=== PATIENT | male | born 1980 | race Caucasian/White ===

== ENCOUNTER 2022-07-10 06:32 | Inpatient (IN) ==
--- NOTE | 2022-07-10 06:47 | Emergency Department Note ---
Impression & Plan Depression with suicidal ideation, Anxiety ED Provider Note NAME: RAFITA CORREIA AGE: 42 SEX: M : 1980 ARRIVES VIA: Walk-In INFORMANT: Patient, ED PROVIDER(S): Medhat Smith MD CHIEF COMPLAINT: Depression MEDICAL DECISION MAKING: Patient presents with depressed mood and seeking inpatient treatment. Blood work was obtained along with a COVID swab. The patient was medically cleared seen and evaluated by the psych family independence case manager and inpatient referrals were made. Patient did receive sublingual Ativan for anxiety. Patient was evaluated by 3 S. and the patient was made inpatient. Prior /Outside records reviewed: None Differential diagnosis: Mood disorder, infection, hypoglycemia, electrolyte abnormalities, cardiac sources, intracerebral event, toxicologic, trauma, neurologic, as well as other pathologies. HPI: Patient presents for mental wellness concern and states he has been increasingly depressed. Patient states that when he closes his eyes he has fleeting visions of things like worms coming from his fingers and he does understand what this is due to. Patient states he has been increasingly depressed and is thought about self-harm but does not have a specific plan. The patient was in the [employer] serving in the [employer] and states that he does suffer from PTSD. The patient had been taking medication for depression but because of the stigma had stopped taking them in addition to the fact that he lost his job and no longer had insurance. Patient does feel very sad. The patient did have a prior suicidal bowel where the patient did obtain some box cutters and had contemplated cutting himself but did not follow through. This was 1-1/2 years ago. Patient denies any alcohol or tobacco use. The patient states that he suffers from autism and has a history of being an "[employer] br[employer] "and that these things when he was younger child caused him great difficulty. He denies any significant specific HI but states he is always concerned that he may harm someone else. Patient does not own any guns or weapons. The patient does not feel safe at home and does live by himself. Patient is currently unemployed. Patient has not sought any benefits of the [place] PAST MEDICAL HISTORY: See Below PAST SURGICAL HISTORY: See Below SOCIAL HISTORY: See Below HOME MEDICATIONS: See Below ALLERGIES: See Below VITALS: See Below PHYSICAL EXAMINATION: GENERAL: Depressed mood, tearful. EYE EXAM: Normal conjunctiva. PERRL, no anisocoria and EOM's grossly intact w/o pain. NECK: Supple, no nuchal rigidity, no adenopathy, non-tender. No signs of meningismus. FROM of the neck with good chin to chest and neck extension. No stridor. LUNGS: Clear to auscultation. Normal chest wall mechanics. HEART: NSR, no MRG. ABDOMEN: Abdomen soft, non-tender, normo-active bowel sounds, no masses, no rebound or guarding. BACK: No CVA TTP. SKIN: No rashes and no bruising. UPPER EXTREMITIES: Upper extremities are grossly normal. LOWER EXTREMITIES: Grossly normal, no edema. NEURO EXAM: A&O x3, cranial nerves II-XII grossly intact, normal speech, moves all 4 extremities. Psych: Depressed mood, tearful, positive SI, negative HI, negative AVH. 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 Feels Safe at Home: No Gender Identity: Male Allergies Allergies Allergy/AdvReac Type Severity Reaction Status Date / Time No Known Allergies Allergy Verified 07/10/22 07:59 Home Meds Home Medications Medication Instructions Recorded Confirmed acetaminophen 500 mg tablet 500 mg PO Q6H PRN Pain 07/15/18 07/15/18 (Tylenol Extra Strength) ibuprofen 200 mg tablet 200 mg PO QID PRN Pain 07/15/18 07/15/18 Results & Data (ED) Vital Signs Vital Signs - 24 hr 07/10/22 06:35 07/10/22 08:54 Temperature 36.2 C L Temperature Source Temporal Artery Scan Pulse Rate 96 H Respiratory Rate 18 Respiratory Effort / Characteristics Non-Labored Spontaneous Respiratory Depth Normal Blood Pressure 170/108 H Blood Pressure [Left Arm] 138/78 Blood Pressure Mean 128 Blood Pressure Mean [Left Arm] 98 Blood Pressure Position Sitting Pulse Oximetry 99 Oxygen Delivery Method Room Air Sepsis Recent Fever Within 48 Hours No Sepsis New/Unexplained Change in Mental Status No Sepsis Action Taken by Nursing No Action Required Home Medications Current Medication List: was personally reviewed by me Laboratory Data Attestation: I reviewed the patient's lab results. 07/10/22 07:16 07/10/22 07:16 Lab Results 07/10/22 07/10/22 07/10/22 Range/Units 06:54 06:54 07:16 WBC 9.22 (4.8-10.8) K/ul RBC 4.70 (4.70-6.10) M/uL Hgb 14.6 (14.0-18.0) g/dl Hct 40.8 L (42.0-52.0) % MCV 86.8 (80.0-100.0) fL MCH 31.1 (25.0-34.0) pg MCHC 35.8 (32.0-36.0) g/dL RDW Std Deviation 39.1 (36.4-46.3) fL RDW Coeff of Genevieve 12.2 (11.5-14.5) % Plt Count 226 (130-400) K/uL MPV 9.0 L (9.4-12.4) fL Immature Gran % (Auto) 0.3 % Neut % (Auto) 74.3 % Lymph % (Auto) 17.8 % [place] % (Auto) 6.3 % Eos % (Auto) 0.8 % Baso % (Auto) 0.5 % Neut # (Auto) 6.85 H (1.40-6.50) K/uL Lymph # (Auto) 1.64 (1.2-3.4) K/uL [place] # (Auto) 0.58 (0.11-0.59) K/uL Eos # (Auto) 0.07 (0-0.50) K/uL Baso # (Auto) 0.05 (0-0.2) K/uL Immature Gran # (Auto) 0.03 (0.01-0.20) K/uL Sodium (136-145) mmol/L Potassium (3.5-5.1) mmol/L Chloride (98-107) mmol/L Carbon Dioxide (21-32) mmol/L Anion Gap (3-11) BUN (6-23) mg/dl Creatinine (0.6-1.4) mg/dl Est Cr Clr Drug Dosing ml/min Est GFR ( Amer) ml/min Est GFR (Non-Af Amer) ml/min BUN/Creatinine Ratio (10-20) Glucose (70-99(Fasting)) mg/dl Calcium (8.5-10.1) mg/dl Total Bilirubin (0.2-1.0) mg/dl AST (13-39) U/L ALT (7-52) U/L Alkaline Phosphatase (34-104) U/L Total Protein (6.0-8.3) gm/dl Albumin (3.4-5.0) gm/dl Globulin (2.5-4.0) gm/dl Albumin/Globulin Ratio (0.9-2) TSH (0.300-4.500) uIu/ml Urine Color Yellow Urine Appearance Clear (Clear) Urine pH 6.5 (4.5-7.5) Ur Specific [place] 1.016 (1.000-1.030) Urine Protein Negative (Negative) Urine Glucose (UA) Negative (Negative) Urine Ketones 3+ H (Negative) Urine Blood Negative (Negative) Urine Nitrite Negative (Negative) Urine Bilirubin Negative (Negative) Urine Urobilinogen Negative (Negative) Ur Leukocyte Esterase Negative (Negative) Salicylates (3.0-30) mg/dl Urine Opiates Screen Neg (Neg) Ur Methadone, Qual Neg (Neg) Acetaminophen (10-30) ug/ml Urine Barbiturates Neg (Neg) Ur Phencyclidine (PCP) Neg (Neg) U Amphetamin/Meth Scrn Neg (Neg) MDMA (Ecstasy) Screen Neg (Neg) U Benzodiazepines Scrn Neg (Neg) Ur Cocaine Metabolite Neg (Neg) U Marijuana (THC) Screen Pos H (Neg) Ethyl Alcohol mg/dL (<10.0) mg/dl SARS-CoV-2, RNA, NAAT (NEGATIVE) 07/10/22 07/10/22 07/10/22 Range/Units 07:16 07:16 07:16 WBC (4.8-10.8) K/ul RBC (4.70-6.10) M/uL Hgb (14.0-18.0) g/dl Hct (42.0-52.0) % MCV (80.0-100.0) fL MCH (25.0-34.0) pg MCHC (32.0-36.0) g/dL RDW Std Deviation (36.4-46.3) fL RDW Coeff of Genevieve (11.5-14.5) % Plt Count (130-400) K/uL MPV (9.4-12.4) fL Immature Gran % (Auto) % Neut % (Auto) % Lymph % (Auto) % [place] % (Auto) % Eos % (Auto) % Baso % (Auto) % Neut # (Auto) (1.40-6.50) K/uL Lymph # (Auto) (1.2-3.4) K/uL [place] # (Auto) (0.11-0.59) K/uL Eos # (Auto) (0-0.50) K/uL Baso # (Auto) (0-0.2) K/uL Immature Gran # (Auto) (0.01-0.20) K/uL Sodium 139 (136-145) mmol/L Potassium 3.4 L (3.5-5.1) mmol/L Chloride 103 (98-107) mmol/L Carbon Dioxide 30 (21-32) mmol/L Anion Gap 6 (3-11) BUN 13 (6-23) mg/dl Creatinine 0.81 (0.6-1.4) mg/dl Est Cr Clr Drug Dosing 121.4 ml/min Est GFR ( Amer) 126.2 ml/min Est GFR (Non-Af Amer) 108.9 ml/min BUN/Creatinine Ratio 16.0 (10-20) Glucose 128 H (70-99(Fasting)) mg/dl Calcium 9.7 (8.5-10.1) mg/dl Total Bilirubin 0.8 (0.2-1.0) mg/dl AST 14 (13-39) U/L ALT 19 (7-52) U/L Alkaline Phosphatase 54 (34-104) U/L Total Protein 7.4 (6.0-8.3) gm/dl Albumin 4.4 (3.4-5.0) gm/dl Globulin 3.0 (2.5-4.0) gm/dl Albumin/Globulin Ratio 1.5 (0.9-2) TSH 1.066 (0.300-4.500) uIu/ml Urine Color Urine Appearance (Clear) Urine pH (4.5-7.5) Ur Specific [place] (1.000-1.030) Urine Protein (Negative) Urine Glucose (UA) (Negative) Urine Ketones (Negative) Urine Blood (Negative) Urine Nitrite (Negative) Urine Bilirubin (Negative) Urine Urobilinogen (Negative) Ur Leukocyte Esterase (Negative) Salicylates < 3.0 L (3.0-30) mg/dl Urine Opiates Screen (Neg) Ur Methadone, Qual (Neg) Acetaminophen < 3 L (10-30) ug/ml Urine Barbiturates (Neg) Ur Phencyclidine (PCP) (Neg) U Amphetamin/Meth Scrn (Neg) MDMA (Ecstasy) Screen (Neg) U Benzodiazepines Scrn (Neg) Ur Cocaine Metabolite (Neg) U Marijuana (THC) Screen (Neg) Ethyl Alcohol mg/dL (<10.0) mg/dl SARS-CoV-2, RNA, NAAT (NEGATIVE) 07/10/22 07/10/22 Range/Units 07:16 07:16 WBC (4.8-10.8) K/ul RBC (4.70-6.10) M/uL Hgb (14.0-18.0) g/dl Hct (42.0-52.0) % MCV (80.0-100.0) fL MCH (25.0-34.0) pg MCHC (32.0-36.0) g/dL RDW Std Deviation (36.4-46.3) fL RDW Coeff of Genevieve (11.5-14.5) % Plt Count (130-400) K/uL MPV (9.4-12.4) fL Immature Gran % (Auto) % Neut % (Auto) % Lymph % (Auto) % [place] % (Auto) % Eos % (Auto) % Baso % (Auto) % Neut # (Auto) (1.40-6.50) K/uL Lymph # (Auto) (1.2-3.4) K/uL [place] # (Auto) (0.11-0.59) K/uL Eos # (Auto) (0-0.50) K/uL Baso # (Auto) (0-0.2) K/uL Immature Gran # (Auto) (0.01-0.20) K/uL Sodium (136-145) mmol/L Potassium (3.5-5.1) mmol/L Chloride (98-107) mmol/L Carbon Dioxide (21-32) mmol/L Anion Gap (3-11) BUN (6-23) mg/dl Creatinine (0.6-1.4) mg/dl Est Cr Clr Drug Dosing ml/min Est GFR ( Amer) ml/min Est GFR (Non-Af Amer) ml/min BUN/Creatinine Ratio (10-20) Glucose (70-99(Fasting)) mg/dl Calcium (8.5-10.1) mg/dl Total Bilirubin (0.2-1.0) mg/dl AST (13-39) U/L ALT (7-52) U/L Alkaline Phosphatase (34-104) U/L Total Protein (6.0-8.3) gm/dl Albumin (3.4-5.0) gm/dl Globulin (2.5-4.0) gm/dl Albumin/Globulin Ratio (0.9-2) TSH (0.300-4.500) uIu/ml Urine Color Urine Appearance (Clear) Urine pH (4.5-7.5) Ur Specific [place] (1.000-1.030) Urine Protein (Negative) Urine Glucose (UA) (Negative) Urine Ketones (Negative) Urine Blood (Negative) Urine Nitrite (Negative) Urine Bilirubin (Negative) Urine Urobilinogen (Negative) Ur Leukocyte Esterase (Negative) Salicylates (3.0-30) mg/dl Urine Opiates Screen (Neg) Ur Methadone, Qual (Neg) Acetaminophen (10-30) ug/ml Urine Barbiturates (Neg) Ur Phencyclidine (PCP) (Neg) U Amphetamin/Meth Scrn (Neg) MDMA (Ecstasy) Screen (Neg) U Benzodiazepines Scrn (Neg) Ur Cocaine Metabolite (Neg) U Marijuana (THC) Screen (Neg) Ethyl Alcohol mg/dL < 10.0 (<10.0) mg/dl SARS-CoV-2, RNA, NAAT NEGATIVE (NEGATIVE) Administered Medications Discontinued Medications Lorazepam (Lorazepam 1 Mg Tab) 1 mg SL NOW STA Stop: 07/10/22 08:06 Last Admin: 07/10/22 08:09 Dose: 1 mg Documented By: AM Discharge Plan Visit Data Chief Complaint: Mental Health Evaluation Stated Complaint: MENTAL HEALTH EVALUATION - 201 ED Provider: Medhat Smith Discharge Problem: Depression with suicidal ideation, Anxiety Patient Disposition: Admitted As Inpatient Forms Stand Alone Forms: [facility], Suicide Prevention Resources Referrals Referrals: PCP,NO [Primary Care Provider] -
[2022-07-10 07:15] LABS: Appearance Urine Clear (Clear); Bilirubin Urine Negative (Negative); Blood Urine Negative (Negative); Color Urine Yellow; Glucose Urine UA Negative (Negative); Ketones Urine 3+ (Negative); Leukocyte Esterase Urine Negative (Negative); Nitrite Urine Negative (Negative); Protein Urine Negative (Negative); Specific Gravity Urine 1.016 (1.000-1.030); Urobilinogen Urine Negative (Negative); pH Urine 6.5 (4.5-7.5)
[2022-07-10 07:41] LABS: Basophils # (auto) 0.05 K/uL (0-0.2); Basophils % (auto) 0.5 %; Eosinophils # (auto) 0.07 K/uL (0-0.50); Eosinophils % (auto) 0.8 %; Hematocrit (blood only) 40.8 % (42.0-52.0); Hemoglobin 14.6 g/dl (14.0-18.0); Immature Granulocytes # (auto) 0.03 K/uL (0.01-0.20); Immature Granulocytes % (auto) 0.3 %; Lymphocytes # (auto) 1.64 K/uL (1.2-3.4); Lymphocytes % (auto) 17.8 %; Mean Corpuscular Hemoglobin 31.1 pg (25.0-34.0); Mean Corpuscular Hgb Conc 35.8 g/dL (32.0-36.0); Mean Corpuscular Volume 86.8 fL (80.0-100.0); Monocytes # (auto) 0.58 K/uL (0.11-0.59); Monocytes % (auto) 6.3 %; Neutrophils # (auto) 6.85 K/uL (1.40-6.50); Neutrophils % (auto) 74.3 %; Platelet Count 226 K/uL (130-400); RDW Coefficient of Variation 12.2 % (11.5-14.5); RDW Standard Deviation 39.1 fL (36.4-46.3); White Blood Count 9.22 K/ul (4.8-10.8)
[2022-07-10 08:01] LABS: Albumin Level 4.4 gm/dl (3.4-5.0); Bilirubin,Total 0.8 mg/dl (0.2-1.0); Calcium 9.7 mg/dl (8.5-10.1); Potassium 3.4 mmol/L (3.5-5.1)
[2022-07-10] MEDS ORDERED: LORazepam 1 MG TAB SL STA (08:05)
[2022-07-10 08:23] LABS: Acetaminophen < 3 ug/ml (10-30); Albumin Globulin Ratio 1.5 (0.9-2); Creatinine Clr Calc Pharmacy 121.4 ml/min; Est GFR (African American) 126.2 ml/min; Est GFR (Non-African American) 108.9 ml/min; Salicylate < 3.0 mg/dl (3.0-30); Total Protein 7.4 gm/dl (6.0-8.3)
[2022-07-10 08:34] LABS: Amphetamines+Metham, Urine Neg (Neg); Barbiturates, Urine Neg (Neg); Benzodiazepine, Urine Neg (Neg); Cocaine, Urine Neg (Neg); MDMA (Ecstacy), Urine Neg (Neg); Methadone, Urine Neg (Neg); Opiate, Urine Neg (Neg); Phencyclidine, Urine Neg (Neg)
[2022-07-10] MEDS ORDERED: ACETAMINOPHEN 325 MG TAB PO PRN (11:16)
[2022-07-10] MEDS ORDERED: SODIUM CHLORIDE 0.65% NA SOLN 45 ML (OCEAN) PRN (11:16)
[2022-07-10] MEDS ORDERED: BISMUTH SUBSALICYLATE LIQD 236 ML PO PRN (11:16)
[2022-07-10] MEDS ORDERED: NICOTINE POLACRILEX 2 MG GUM MT PRN (11:16)
[2022-07-10] MEDS ORDERED: hydrOXYzine HCl 25 MG TAB PO PRN ×2 (11:16)
[2022-07-10] MEDS ORDERED: MAGNESIUM HYDROXIDE SUSP 30 ML UDC PO PRN (11:16)
[2022-07-10] MEDS ORDERED: ALUMINUM/MAGNESIUM SUSP 30 ML UDC PO PRN (11:16)
[2022-07-10] MEDS ORDERED: FLUARIX QUADRIVALENT 0.5 ML SYR IM ONE (11:27)
[2022-07-10] MEDS: NICOTINE 21 MG/24 HR TDSY TD SCH (14:34)
--- NOTE | 2022-07-10 15:59 | History & Physical ---
Date of Service July 10, 2022 Impression / Recommendations Impression Rafita is a 42 year old with a history of ASD, depression who was admitted for worsening depression, SI, and visual hallucinations. Diagnostically consistent with unspecified psychosis and depression differential is broad but MDD with psychotic features vs cannabis delta 8 induced vs complex PTSD seems most likely. He requires psychiatric hospitalization for diagnostic clarification, safety and stabilization, medication management and development of further coping skills. Discussed medication treatment options in detail. Discussed risks, benefits and alternatives. Patient would like to start and consented to olanzapine for depression and psychosis. Reviewed side effects including but not limited to: movement (TD, NMS), cardiac (QTc prolongation), and metabolic (stroke, insulin resistance) and necessity for fasting lipid and glucose labwork and AIMS done with score of 0. MNPR due to psychosis and intrusive thoughts related to possible harm to others (1) Unspecified psychosis not due to a substance or known physiological condition: (2) Depression with suicidal ideation: (3) Depression, unspecified: (4) Cannabis-induced psychotic disorder: (5) Post traumatic stress disorder (PTSD): Plan 07/10/2022: The patient was admitted to the [facility] ([facility] mental health unit) on q15 min checks (behavioral with suicide precautions) for safety. The patient will participate in group, recreational, and milieu therapies and will be offered additional individual and family sessions as clinically appropriate. -Start olanzapine 5mg HS Inventory Assets Strengths: willing to get treatment, resilient Needs: safety and stabilization, medication adjustment, additional coping skills, increased outpatient services, health insurance Suicide Risk Level Suicide Risk Level: High-Moderate (q15 min suicide checks) (depression and psychosis with SI with plan prior to admission but feels safe in the hospital, able to safety contract and agrees to let nursing/staff know should they develop plan, intent or feel unable to remain safe.) Suicide Risk Level Comments: Risk Factors Assessment Male: Yes : Yes Do You Have Access To A Gun?: No Mental Health Diagnoses: Yes Substance Use Disorders: Yes Previous Attempt: Yes Previous Psychiatric Hospitalization: Yes Protective Factors Assessment 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 Chief Complaint "I had this sense of my calamity and chaos". History of Present Illness Rafita presents for psychiatric admission for worsening depression and SI. He states the start of thinking about suicide was a major warning sign for him as "my mind went back down that rabbit hole" and that he knew he would not be able to remain safe. He describes extreme loneliness as he has a lack of intimate connections though deeply wishes for this. Feels as though he will develop "insantity" due to his social isolation. Has one close female friend but only sees her once every two weeks and feels this is not frequent enough to prevent the feeling of total isolation. 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 Describes that "my anxiety and mental state go in waves". He has not been sleeping well. Reports seeing "constant images" when he closes his eyes of "abstract and flashing things" and that "I have a very analytical mind and I'm not sure if they mean something". Also describes possible ideas influenced by watching TV. Feels that he often waits too long to ask for support and that "I'm close to losing my sense of reality". Also describes being easily disturbed by loud noises as "they disrupt my agnieszka state". States he would never want to engage others in non-consensual intimate acts but has been having more intrusive thoughts about this due to "survivalist need" for contact "not even intimate just important for someone to be able to feel another's heart beat". He is not currently prescribed any psychiatric medications. Psychiatric ROS notable for no current nor history of symptoms of elvira. Possible history of PTSD. Past Psychiatric History Current Psychiatric Diagnosis: Depression Outpatient Services: none Previous Psych Admissions: [facility] on 302 status in October 2020 Do You Have Access To A Gun?: No History of Previous Suicide Attempt: Yes Describe Attempts in the Past: attempting to cut wrist with razor blade Past Medication Trials: recalls venlafaxine, thinks he may have also tried an SSRI Past Head Trauma/Neuro History History of Concussion/Seizure: No Allergies Allergy/AdvReac Type Severity Reaction Status Date / Time No Known Allergies Allergy Verified 07/10/22 07:59 Family History Family History of: Doesn't Know Alcohol History Hx of Alcohol Use Over the Past 12 Months: No (Sober since December 2020) AUDIT Total Score: 0 Smoking Use Have You Smoked or Used Tobacco Products in the Last 30 Days: Yes tobacco type: cigarettes Smoking Status: Current every day smoker Substance History Hx of Prescription Med Misuse Over the Past 12 Months: No Hx of Over the Counter Med Misuse Over the Past 12 Months: No Hx of Inhalent Misuse Over the Past 12 Months: No Hx of Organic Substance Use Over the Past 12 Months: Yes Hx of Illegal Substances/Street Drug Use Over Past 12 Months: No Problems as a Result of Past Substance Use: None Identified For the last two months has been using deta 8 THC. 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) Marital Status: Number Of Children: 10 yo Beliefs That Will Affect Care: None Current Legal Problems: No Hx Legal Problems: No Additional Comments: hx service Patient History Medical History Depression PTSD (post-traumatic stress disorder) Surgical History No pertinent past surgical history Family History Other Myocardial infarction Social History Smoking Status: Current every day smoker Tobacco Type: E-cigarettes / Vaping Hx Alcohol Use: No Hx Substance Use: No Preferred Language: Icelandic Communication Ability: Effective Chain Splitter Required: No Beliefs That Will Affect Care: None Current Living Situation: Alone current occupational status: unemployed 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 Feels Safe at Home: Yes Gender Identity: Male Assistive Devices: Glasses Review of Systems Review of Systems: All systems reviewed & are unremarkable except as noted in HPI & below (chronic stomach pain) Physical Exam Psychiatric: Orientation: alert and oriented x 3 Apperance: appropriately dressed and + disheveled Eye Contact: + fair eye contact Motor Behavior: no abnormal motor movements Speech: normal rate/rhythm/volume of speech Affect: + depressed affect and + anxious affect Mood: + depressed mood and + anxious mood Thought Process: + looseness of associations Thought Content: + neologisms, + ideas of reference and + loneliness Suicidal Thoughts: denies suicidal plan and denies suicidal intent; + reports suicidal thoughts (intermittent thoughts) Homicidal Thoughts: denies homicidal thoughts (though intrusive thoughts about non-consensual intimacy ) and denies homicidal plan Hallucinations: + visual hallucinations (seeing flashes of images); no auditory hallucinations Cognition: recent memory grossly intact, remote memory grossly intact, attention grossly intact and language grossly intact Estimated Intelligence: consistent with education level Insight: + limited insight Judgment: + limited judgement Vital Signs (Past 24 Hours): Last Vital Signs Temp 36.7 C 07/10/22 11:28 Pulse 78 07/10/22 11:28 Resp 18 07/10/22 11:28 BP 138/78 07/10/22 11:28 Pulse Ox 99 07/10/22 06:35 O2 Del Method 07/10/22 06:35 Exam Statement: A physical exam was performed in the ED by Dr. Smith for the purposes of medical clearance. I accept that physical as correct and adequate for the purposes of the inpatient physical exam. Results & Data ([facility]) Laboratory Results Laboratory Results - last 24 hr 07/10/22 07/10/22 07/10/22 06:54 06:54 06:54 WBC RBC Hgb Hct MCV MCH MCHC RDW Std Deviation RDW Coeff of Genevieve Plt Count MPV Immature Gran % (Auto) Neut % (Auto) Lymph % (Auto) [place] % (Auto) Eos % (Auto) Baso % (Auto) Neut # (Auto) Lymph # (Auto) [place] # (Auto) Eos # (Auto) Baso # (Auto) Immature Gran # (Auto) Sodium Potassium Chloride Carbon Dioxide Anion Gap BUN Creatinine Est Cr Clr Drug Dosing Est GFR ( Amer) Est GFR (Non-Af Amer) BUN/Creatinine Ratio Glucose Calcium Total Bilirubin AST ALT Alkaline Phosphatase Total Protein Albumin Globulin Albumin/Globulin Ratio TSH Urine Color Yellow Urine Appearance Clear Urine pH 6.5 Ur Specific [place] 1.016 Urine Protein Negative Urine Glucose (UA) Negative Urine Ketones 3+ H Urine Blood Negative Urine Nitrite Negative Urine Bilirubin Negative Urine Urobilinogen Negative Ur Leukocyte Esterase Negative Salicylates Urine Opiates Screen Neg Ur Methadone, Qual Neg Acetaminophen Urine Barbiturates Neg Ur Phencyclidine (PCP) Neg U Amphetamin/Meth Scrn Neg MDMA (Ecstasy) Screen Neg U Benzodiazepines Scrn Neg Ur Cocaine Metabolite Neg U Marijuana (THC) Screen Pos H U Marijuana THC Carboxy Pending Drug Screen Comment Pending Ethyl Alcohol mg/dL SARS-CoV-2, RNA, NAAT 07/10/22 07/10/22 07/10/22 07:16 07:16 07:16 WBC 9.22 RBC 4.70 Hgb 14.6 Hct 40.8 L MCV 86.8 MCH 31.1 MCHC 35.8 RDW Std Deviation 39.1 RDW Coeff of Genevieve 12.2 Plt Count 226 MPV 9.0 L Immature Gran % (Auto) 0.3 Neut % (Auto) 74.3 Lymph % (Auto) 17.8 [place] % (Auto) 6.3 Eos % (Auto) 0.8 Baso % (Auto) 0.5 Neut # (Auto) 6.85 H Lymph # (Auto) 1.64 [place] # (Auto) 0.58 Eos # (Auto) 0.07 Baso # (Auto) 0.05 Immature Gran # (Auto) 0.03 Sodium 139 Potassium 3.4 L Chloride 103 Carbon Dioxide 30 Anion Gap 6 BUN 13 Creatinine 0.81 Est Cr Clr Drug Dosing 121.4 Est GFR ( Amer) 126.2 Est GFR (Non-Af Amer) 108.9 BUN/Creatinine Ratio 16.0 Glucose 128 H Calcium 9.7 Total Bilirubin 0.8 AST 14 ALT 19 Alkaline Phosphatase 54 Total Protein 7.4 Albumin 4.4 Globulin 3.0 Albumin/Globulin Ratio 1.5 TSH 1.066 Urine Color Urine Appearance Urine pH Ur Specific [place] Urine Protein Urine Glucose (UA) Urine Ketones Urine Blood Urine Nitrite Urine Bilirubin Urine Urobilinogen Ur Leukocyte Esterase Salicylates Urine Opiates Screen Ur Methadone, Qual Acetaminophen Urine Barbiturates Ur Phencyclidine (PCP) U Amphetamin/Meth Scrn MDMA (Ecstasy) Screen U Benzodiazepines Scrn Ur Cocaine Metabolite U Marijuana (THC) Screen U Marijuana THC Carboxy Drug Screen Comment Ethyl Alcohol mg/dL SARS-CoV-2, RNA, NAAT 07/10/22 07/10/22 07/10/22 07:16 07:16 07:16 WBC RBC Hgb Hct MCV MCH MCHC RDW Std Deviation RDW Coeff of Genevieve Plt Count MPV Immature Gran % (Auto) Neut % (Auto) Lymph % (Auto) [place] % (Auto) Eos % (Auto) Baso % (Auto) Neut # (Auto) Lymph # (Auto) [place] # (Auto) Eos # (Auto) Baso # (Auto) Immature Gran # (Auto) Sodium Potassium Chloride Carbon Dioxide Anion Gap BUN Creatinine Est Cr Clr Drug Dosing Est GFR ( Amer) Est GFR (Non-Af Amer) BUN/Creatinine Ratio Glucose Calcium Total Bilirubin AST ALT Alkaline Phosphatase Total Protein Albumin Globulin Albumin/Globulin Ratio TSH Urine Color Urine Appearance Urine pH Ur Specific [place] Urine Protein Urine Glucose (UA) Urine Ketones Urine Blood Urine Nitrite Urine Bilirubin Urine Urobilinogen Ur Leukocyte Esterase Salicylates < 3.0 L Urine Opiates Screen Ur Methadone, Qual Acetaminophen < 3 L Urine Barbiturates Ur Phencyclidine (PCP) U Amphetamin/Meth Scrn MDMA (Ecstasy) Screen U Benzodiazepines Scrn Ur Cocaine Metabolite U Marijuana (THC) Screen U Marijuana THC Carboxy Drug Screen Comment Ethyl Alcohol mg/dL < 10.0 SARS-CoV-2, RNA, NAAT NEGATIVE Current Inpatient Medications Current Inpatient Medications: Current Inpatient Medications Acetaminophen (Acetaminophen 325 Mg Tab) 650 mg PO Q4H PRN PRN Reason: Headache or Minor Fever Stop: 08/09/22 11:15 Al Hydrox/Mg Hydrox/Simethicone (Aluminum/Magnesium Susp 30 Ml Udc) 30 ml PO Q4H PRN PRN Reason: GI Upset Stop: 08/09/22 11:15 Bismuth Subsalicylate (Bismuth Subsalicylate Liqd 236 Ml) 15 ml PO PRN PRN PRN Reason: Loose Stool Stop: 08/09/22 11:15 Hydroxyzine HCl (Hydroxyzine Hcl 25 Mg Tab) 50 mg PO HSZ PRN PRN Reason: Insomnia Stop: 08/09/22 11:15 Hydroxyzine HCl (Hydroxyzine Hcl 25 Mg Tab) 25 mg PO Q4H PRN PRN Reason: Anxiety Stop: 08/09/22 11:15 Magnesium Hydroxide (Magnesium Hydroxide Susp 30 Ml Udc) 30 ml PO DAILY PRN PRN Reason: Constipation Stop: 08/09/22 11:15 Miscellaneous (Remove Nicoderm Patch) 1 each N/A DAILY@0859 [facility] Stop: 08/10/22 08:58 Nicotine (Nicotine 21 Mg/24 Hr Tdsy) 21 mg TD QAM MICHELLE Stop: 08/09/22 11:29 Last Admin: 07/10/22 14:34 Dose: 21 mg Nicotine Polacrilex (Nicotine Polacrilex 2 Mg Gum) 2 piece MT PRN PRN PRN Reason: Nicotine Withdrawal Stop: 08/09/22 11:15 Sodium Chloride (Sodium Chloride 0.65% Na Soln 45 Ml ([place])) 1 - 2 sprays NA PRN PRN PRN Reason: Nasal Dryness/Congestion Stop: 08/09/22 11:15
[2022-07-10] MEDS ORDERED: OLANZapine 5 MG TABLET PO SCH (22:00)
[2022-07-11] MEDS: NICOTINE 21 MG/24 HR TDSY TD SCH (08:52)
--- NOTE | 2022-07-11 09:04 | Psychiatric Progress Note ---
Date of Service July 11, 2022 Impression / Recommendations Impression Rafita is a 42 year old with a history of ASD, depression who was admitted for worsening depression, SI, and visual hallucinations. Diagnostically consistent with unspecified psychosis and depression differential is broad but MDD with psychotic features vs MDD with some atypicality from ASD vs cannabis delta 8 induced. He requires psychiatric hospitalization for diagnostic clarification, safety and stabilization, medication management and development of further coping skills. MNPR due to intrusive disturbing thoughts and frequently isolates to his room to cope with excess stimulation after groups when around peers 07/11/22: No evidence of overt psychosis today, still with some atypicality likely due to ASD. Will start taper of olanzapine. Discussed medication treatment options in detail. Discussed risks, benefits and alternatives. Patient would like to start and consented to sertraline for MDD. Reviewed side effects including but not limited to: GI, BEE, sexual side effects, and counseled on black box warning of potential for emergence of or increased SI and need to let staff know should this occur or should they feel unsafe. Also discussed importance of seeking emergency care following discharge if this side effect occurs in the future. (1) Major depressive disorder with current active episode: (2) Depression with suicidal ideation: (3) Depression, unspecified: (4) Cannabis-induced psychotic disorder: (5) Autism spectrum disorder: Plan 07/11/22: Decrease olanzapine to 2.5mg HS. Start sertraline 50mg tomorrow AM. 07/10/2022: The patient was admitted to the [facility] ([facility]) on q15 min checks (behavioral with suicide precautions) for safety. The patient will participate in group, recreational, and milieu therapies and will be offered additional individual and family sessions as clinically appropriate. -Start olanzapine 5mg HS Inventory Assets Strengths: willing to get treatment, resilient Needs: safety and stabilization, medication adjustment, additional coping skills, in creased outpatient services, health insurance Suicide Risk Level Suicide Risk Level: Moderate (q15 min suicide checks) (depression and psychosis with SI with plan prior to admission but mood improving, feels safe in the hospital, able to safety contract and agrees to let nursing/staff know should they develop plan, intent or feel unable to remain safe.) Suicide Risk Level Comments: Risk Factors Assessment Male: Yes : Yes Do You Have Access To A Gun?: No Mental Health Diagnoses: Yes Substance Use Disorders: Yes Previous Attempt: Yes Previous Psychiatric Hospitalization: Yes Protective Factors Assessment 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 Chief Complaint "My emotional state is starting to re-regulate". Review of Systems Sleep Information Total Hours of Sleep: 6.25 Sleep Comments: Received Vistaril at 2253 Meal Information Percent Meal Consumed - Lunch: 50 Percent Meal Consumed - Dinner: 100 Subjective Subjective Patient was seen & assessed and interval progress reviewed with treatment team nursing and social work. Isolative to his room and declined all groups yesterday. Was having visions of and decomposing bodies which are bothersome to him. Slept well last night. Today denies any hallucinations or sense of "impending doom" like he was experiencing yesterday. He's interested in an SSRI trial. Denies any history of elvira. Physical Exam Psychiatric Orientation: alert and oriented x 3 Apperance: appropriately dressed and + disheveled Eye Contact: + fair eye contact Motor Behavior: no abnormal motor movements Speech: normal rate/rhythm/volume of speech Affect: + blunted affect Mood: + depressed mood and + anxious mood Thought Process: + circumstantial thought process Thought Content: reality based without delusions Suicidal Thoughts: denies suicidal thoughts, denies suicidal plan and denies suicidal intent Homicidal Thoughts: denies homicidal thoughts Hallucinations: + visual hallucinations (lessening); no auditory hallucinations Cognition: recent memory grossly intact, remote memory grossly intact, attention grossly intact and language grossly intact Estimated Intelligence: consistent with education level Insight: + limited insight Judgment: + limited judgement Vital Signs (Past 24 Hours) Last Vital Signs Temp 37.1 C 07/11/22 06:51 Pulse 62 07/11/22 06:53 Resp 18 07/11/22 06:51 BP 117/62 07/11/22 06:53 Pulse Ox 99 07/10/22 06:35 O2 Del Method 07/10/22 06:35 Results & Data ([facility]) Current Inpatient Medications Current Inpatient Medications: Current Inpatient Medications Acetaminophen (Acetaminophen 325 Mg Tab) 650 mg PO Q4H PRN PRN Reason: Headache or Minor Fever Stop: 08/09/22 11:15 Al Hydrox/Mg Hydrox/Simethicone (Aluminum/Magnesium Susp 30 Ml Udc) 30 ml PO Q4H PRN PRN Reason: GI Upset Stop: 08/09/22 11:15 Bismuth Subsalicylate (Bismuth Subsalicylate Liqd 236 Ml) 15 ml PO PRN PRN PRN Reason: Loose Stool Stop: 08/09/22 11:15 Hydroxyzine HCl (Hydroxyzine Hcl 25 Mg Tab) 50 mg PO HSZ PRN PRN Reason: Insomnia Stop: 08/09/22 11:15 Last Admin: 07/10/22 22:53 Dose: 50 mg Hydroxyzine HCl (Hydroxyzine Hcl 25 Mg Tab) 25 mg PO Q4H PRN PRN Reason: Anxiety Stop: 08/09/22 11:15 Last Admin: 07/11/22 08:52 Dose: 25 mg Magnesium Hydroxide (Magnesium Hydroxide Susp 30 Ml Udc) 30 ml PO DAILY PRN PRN Reason: Constipation Stop: 08/09/22 11:15 Miscellaneous (Remove Nicoderm Patch) 1 each N/A DAILY@0859 [facility] Stop: 08/10/22 08:58 Last Admin: 07/11/22 08:56 Dose: Not Given Nicotine (Nicotine 21 Mg/24 Hr Tdsy) 21 mg TD QAM [facility] Stop: 08/09/22 11:29 Last Admin: 07/11/22 08:52 Dose: 21 mg Nicotine Polacrilex (Nicotine Polacrilex 2 Mg Gum) 2 piece MT PRN PRN PRN Reason: Nicotine Withdrawal Stop: 08/09/22 11:15 Olanzapine (Olanzapine 5 Mg Tablet) 5 mg PO HS MICHELLE Stop: 08/09/22 21:59 Last Admin: 07/10/22 21:14 Dose: 5 mg Sodium Chloride (Sodium Chloride 0.65% Na Soln 45 Ml ([place])) 1 - 2 sprays NA PRN PRN PRN Reason: Nasal Dryness/Congestion Stop: 08/09/22 11:15 Mental Health & Subst Abuse Tx Therapist Name of Therapist: None Bench Examiner Name of Bench Examiner: None Post Discharge Appointments Primary Care Physician Name Of Family Doctor/PCP: None
[2022-07-11] MEDS ORDERED: OLANZAPINE 2.5 MG TAB PO SCH (22:00)
[2022-07-12] MEDS: NICOTINE 21 MG/24 HR TDSY TD SCH (08:59)
[2022-07-12] MEDS: SERTRALINE HCL 50 MG TABLET PO SCH (08:59)
[2022-07-12 10:10] LABS: Marijuana Quant, GCMS Urine 91 ng/mL (<5)
--- NOTE | 2022-07-12 11:39 | Psychiatric Progress Note ---
Date of Service July 12, 2022 Impression / Recommendations Impression Rafita is a 42 year old with a history of ASD, depression who was admitted for worsening depression, SI, and visual hallucinations. Diagnostically consistent with unspecified psychosis and depression differential is broad but MDD with psychotic features vs MDD with some atypicality from ASD vs cannabis delta 8 induced. He requires psychiatric hospitalization for diagnostic clarification, safety and stabilization, medication management and development of further coping skills. MNPR due to ASD and frequently isolates to his room to cope with excess stimulation after groups when around peers 07/12/22: Mood improving, tolerating initial dose of sertraline well without side effects. No SI. No evidence for psychosis, visual hallucinations of disturbing images has resolved. No HI. Still with intermittent flashes of light but he states this is baseline and has been present for many years and he attributes to his ASD. Will discontinue olanzapine. (1) Major depressive disorder with current active episode: (2) Depression with suicidal ideation: (3) Autism spectrum disorder: Plan 07/12/22: Discontinue olanzapine. Continue sertraline 50mg daily. 07/11/22: Decrease olanzapine to 2.5mg HS. Start sertraline 50mg tomorrow AM. 07/10/2022: The patient was admitted to the [facility] ([facility] inpatient mental health unit) on q15 min checks (behavioral with suicide precautions) for safety. The patient will participate in group, recreational, and milieu therapies and will be offered additional individual and family sessions as clinically appropriate. -Start olanzapine 5mg HS Inventory Assets Strengths: willing to get treatment, resilient Needs: safety and stabilization, medication adjustment, additional coping skills, increased outpatient services, health insurance Suicide Risk Level Suicide Risk Level: Moderate (q15 min suicide checks) (depression and psychosis with SI with plan prior to admission but mood improving, feels safe in the hospital, able to safety contract and agrees to let nursing/staff know should they develop plan, intent or feel unable to remain safe.) Suicide Risk Level Comments: Risk Factors Assessment Male: Yes : Yes Do You Have Access To A Gun?: No Mental Health Diagnoses: Yes Substance Use Disorders: Yes Previous Attempt: Yes Previous Psychiatric Hospitalization: Yes Protective Factors Assessment 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 Chief Complaint "The Zoloft is really helping my anxiety and my mood feels more balanced today". Review of Systems Sleep Information Total Hours of Sleep: 7 Sleep Comments: Received Vistaril at 2253 Meal Information Percent Meal Consumed - Breakfast: 100 Percent Meal Consumed - Lunch: 100 Percent Meal Consumed - Dinner: 100 Subjective Subjective Patient was seen & assessed and interval progress reviewed with treatment team nursing and social work. Attending all groups. His mood is improving with less anxiety. Was able to concentrate on a 500 piece puzzle which he pleased with. Feels groups are helping him develop better coping strategies and ways to not self isolate and utilize his supports. Slept fairly well overnight, had one awakening. Denies SI. Still with light flashing when he closes his eyes which he attributes to his ASD but no longer having any disturbing images or visual hallucinations of decomposing bodies or . Physical Exam Psychiatric Orientation: alert and oriented x 3 Apperance: appropriately dressed and appropriately groomed Eye Contact: + fair eye contact Motor Behavior: no abnormal motor movements Speech: normal rate/rhythm/volume of speech Affect: + constricted affect Mood: + depressed mood and + anxious mood Thought Process: goal directed thought process Thought Content: reality based without delusions Suicidal Thoughts: denies suicidal thoughts, denies suicidal plan and denies suicidal intent Homicidal Thoughts: denies homicidal thoughts Hallucinations: no auditory hallucinations and no visual hallucinations (none except flashing light which he states is baseline and due to ASD) Cognition: recent memory grossly intact, remote memory grossly intact, attention grossly intact and language grossly intact Estimated Intelligence: consistent with education level Insight: + limited insight Judgment: + limited judgement Vital Signs (Past 24 Hours) Last Vital Signs Temp 37.1 C 07/12/22 06:40 Pulse 98 H 07/12/22 06:41 Resp 18 07/12/22 06:40 BP 134/70 07/12/22 06:41 Pulse Ox 99 07/10/22 06:35 O2 Del Method 07/10/22 06:35 Results & Data (U) Laboratory Results Laboratory Results - last 24 hr 07/10/22 06:54 U Marijuana THC Carboxy 91 H Drug Screen Comment SEE NOTE Current Inpatient Medications Current Inpatient Medications: Current Inpatient Medications Acetaminophen (Acetaminophen 325 Mg Tab) 650 mg PO Q4H PRN PRN Reason: Headache or Minor Fever Stop: 08/09/22 11:15 Al Hydrox/Mg Hydrox/Simethicone (Aluminum/Magnesium Susp 30 Ml Udc) 30 ml PO Q4H PRN PRN Reason: GI Upset Stop: 08/09/22 11:15 Bismuth Subsalicylate (Bismuth Subsalicylate Liqd 236 Ml) 15 ml PO PRN PRN PRN Reason: Loose Stool Stop: 08/09/22 11:15 Hydroxyzine HCl (Hydroxyzine Hcl 25 Mg Tab) 50 mg PO HSZ PRN PRN Reason: Insomnia Stop: 08/09/22 11:15 Last Admin: 07/10/22 22:53 Dose: 50 mg Hydroxyzine HCl (Hydroxyzine Hcl 25 Mg Tab) 25 mg PO Q4H PRN PRN Reason: Anxiety Stop: 08/09/22 11:15 Last Admin: 07/11/22 08:52 Dose: 25 mg Magnesium Hydroxide (Magnesium Hydroxide Susp 30 Ml Udc) 30 ml PO DAILY PRN PRN Reason: Constipation Stop: 08/09/22 11:15 Miscellaneous (Remove Nicoderm Patch) 1 each N/A DAILY@0859 [facility] Stop: 08/10/22 08:58 Last Admin: 07/12/22 08:59 Dose: 1 each Nicotine (Nicotine 21 Mg/24 Hr Tdsy) 21 mg TD QAM MICHELLE Stop: 08/09/22 11:29 Last Admin: 07/12/22 08:59 Dose: 21 mg Nicotine Polacrilex (Nicotine Polacrilex 2 Mg Gum) 2 piece MT PRN PRN PRN Reason: Nicotine Withdrawal Stop: 08/09/22 11:15 Olanzapine (Olanzapine 2.5 Mg Tab) 2.5 mg PO HS MICHELLE Stop: 08/10/22 21:59 Last Admin: 07/11/22 21:01 Dose: 2.5 mg Sertraline HCl (Sertraline Hcl 50 Mg Tablet) 50 mg PO QAM MICHELLE Stop: 08/11/22 08:59 Last Admin: 07/12/22 08:59 Dose: 50 mg Sodium Chloride (Sodium Chloride 0.65% Na Soln 45 Ml ([place])) 1 - 2 sprays NA PRN PRN PRN Reason: Nasal Dryness/Congestion Stop: 08/09/22 11:15 Mental Health & Subst Abuse Tx Therapist Name of Therapist: None Shotgun Shell Assembly Machine Adjuster Name of Shotgun Shell Assembly Machine Adjuster: None Post Discharge Appointments Primary Care Physician Name Of Family Doctor/PCP: None
--- NOTE | 2022-07-13 07:58 | Psychiatric Progress Note ---
Date of Service July 13, 2022 Impression / Recommendations Impression Rafita is a 42 year old with a history of ASD, depression who was admitted for worsening depression, SI, and visual hallucinations. Diagnostically consistent with unspecified psychosis and depression differential is broad but MDD with psychotic features vs MDD with some atypicality from ASD vs cannabis delta 8 induced. He requires psychiatric hospitalization for diagnostic clarification, safety and stabilization, medication management and development of further coping skills. MNPR due to ASD and frequently isolates to his room to cope with excess stimulation after groups when around peers 07/12/22: Mood improving, tolerating initial dose of sertraline well without side effects. No SI. No evidence for psychosis, visual hallucinations of disturbing images has resolved. No HI. Still with intermittent flashes of light but he states this is baseline and has been present for many years and he attributes to his ASD. Will discontinue olanzapine. (1) Major depressive disorder with current active episode: (2) Depression with suicidal ideation: (3) Autism spectrum disorder: Plan 07/12/22: Discontinue olanzapine. Continue sertraline 50mg daily. 07/11/22: Decrease olanzapine to 2.5mg HS. Start sertraline 50mg tomorrow AM. 07/10/2022: The patient was admitted to the [facility] ([facility] inpatient mental health unit) on q15 min checks (behavioral with suicide precautions) for safety. The patient will participate in group, recreational, and milieu therapies and will be offered additional individual and family sessions as clinically appropriate. -Start olanzapine 5mg HS Inventory Assets Strengths: willing to get treatment, resilient Needs: safety and stabilization, medication adjustment, additional coping skills, increased outpatient services, health insurance Suicide Risk Level Suicide Risk Level: Moderate (q15 min suicide checks) (depression and psychosis with SI with plan prior to admission but mood improving, feels safe in the hospital, able to safety contract and agrees to let nursing/staff know should they develop plan, intent or feel unable to remain safe.) Suicide Risk Level Comments: Risk Factors Assessment Male: Yes : Yes Do You Have Access To A Gun?: No Mental Health Diagnoses: Yes Substance Use Disorders: Yes Previous Attempt: Yes Previous Psychiatric Hospitalization: Yes Protective Factors Assessment 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 Chief Complaint "[]". Review of Systems Sleep Information Total Hours of Sleep: 6.25 Sleep Comments: Received Vistaril at 2253 Meal Information Percent Meal Consumed - Breakfast: 100 Percent Meal Consumed - Lunch: 100 Percent Meal Consumed - Dinner: 100 Subjective Subjective Patient was seen & assessed and interval progress reviewed with [treatment team] [nursing and social work] Physical Exam Psychiatric Orientation: alert and oriented x 3 Apperance: appropriately dressed, appropriately groomed and + disheveled Eye Contact: good eye contact and + fair eye contact Motor Behavior: no abnormal motor movements Speech: normal rate/rhythm/volume of speech Affect: + depressed affect, + anxious affect, + blunted affect and + constricted affect Mood: + depressed mood and + anxious mood Thought Process: goal directed thought process, + circumstantial thought process and + looseness of associations Thought Content: reality based without delusions, + neologisms, + ideas of reference and + loneliness Suicidal Thoughts: denies suicidal thoughts, denies suicidal plan and denies suicidal intent Homicidal Thoughts: denies homicidal thoughts and denies homicidal plan Hallucinations: no auditory hallucinations and no visual hallucinations (none except flashing light which he states is baseline and due to ASD) Cognition: recent memory grossly intact, remote memory grossly intact, attention grossly intact and language grossly intact Estimated Intelligence: consistent with education level Insight: + limited insight and + fair insight Judgment: + limited judgement and + fair judgement Vital Signs (Past 24 Hours) Last Vital Signs Temp 37.2 C 07/13/22 06:50 Pulse 65 07/13/22 06:51 Resp 18 07/13/22 06:50 BP 133/78 07/13/22 06:51 Pulse Ox 99 07/10/22 06:35 O2 Del Method 07/10/22 06:35 Results & Data ([facility]) Laboratory Results Laboratory Results - last 24 hr 07/10/22 06:54 U Marijuana THC Carboxy 91 H Drug Screen Comment SEE NOTE Current Inpatient Medications Current Inpatient Medications: Current Inpatient Medications Acetaminophen (Acetaminophen 325 Mg Tab) 650 mg PO Q4H PRN PRN Reason: Headache or Minor Fever Stop: 08/09/22 11:15 Al Hydrox/Mg Hydrox/Simethicone (Aluminum/Magnesium Susp 30 Ml Udc) 30 ml PO Q4H PRN PRN Reason: GI Upset Stop: 08/09/22 11:15 Bismuth Subsalicylate (Bismuth Subsalicylate Liqd 236 Ml) 15 ml PO PRN PRN PRN Reason: Loose Stool Stop: 08/09/22 11:15 Hydroxyzine HCl (Hydroxyzine Hcl 25 Mg Tab) 50 mg PO HSZ PRN PRN Reason: Insomnia Stop: 08/09/22 11:15 Last Admin: 07/10/22 22:53 Dose: 50 mg Hydroxyzine HCl (Hydroxyzine Hcl 25 Mg Tab) 25 mg PO Q4H PRN PRN Reason: Anxiety Stop: 08/09/22 11:15 Last Admin: 07/11/22 08:52 Dose: 25 mg Magnesium Hydroxide (Magnesium Hydroxide Susp 30 Ml Udc) 30 ml PO DAILY PRN PRN Reason: Constipation Stop: 08/09/22 11:15 Miscellaneous (Remove Nicoderm Patch) 1 each N/A DAILY@0859 [facility] Stop: 08/10/22 08:58 Last Admin: 07/12/22 08:59 Dose: 1 each Nicotine (Nicotine 21 Mg/24 Hr Tdsy) 21 mg TD QAM MICHELLE Stop: 08/09/22 11:29 Last Admin: 07/12/22 08:59 Dose: 21 mg Nicotine Polacrilex (Nicotine Polacrilex 2 Mg Gum) 2 piece MT PRN PRN PRN Reason: Nicotine Withdrawal Stop: 08/09/22 11:15 Sertraline HCl (Sertraline Hcl 50 Mg Tablet) 50 mg PO QAM MICHELLE Stop: 08/11/22 08:59 Last Admin: 07/12/22 08:59 Dose: 50 mg Sodium Chloride (Sodium Chloride 0.65% Na Soln 45 Ml ([place])) 1 - 2 sprays NA PRN PRN PRN Reason: Nasal Dryness/Congestion Stop: 08/09/22 11:15 Mental Health & Subst Abuse Tx Therapist Name of Therapist: None Intelligence Specialist Name of Intelligence Specialist: None Post Discharge Appointments Primary Care Physician Name Of Family Doctor/PCP: [facility] - Eligibility Appointment Primary Care Date of Future Appointment with PCP: 07/16/22 Time of Appointment with PCP: 10 AM Provider Appointment Comment: [id number], [address], [place], [place] Other #1: Name of Aftercare Appointment: [facility] Time of Aftercare Appointment: Please bring photo ID, proof of address, most recent W-2 or taxes, Aftercare Appointment Comment: proof of income, and list of medications to eligibility appointment. Contact Information Discharge Discharge Address: [address] [place] [address], [place] [address]
[2022-07-13] MEDS: SERTRALINE HCL 50 MG TABLET PO SCH (08:42)
[2022-07-13] MEDS: NICOTINE 21 MG/24 HR TDSY TD SCH (08:46)
--- NOTE | 2022-07-13 10:17 | Discharge Summary ---
Date of Service July 13, 2022 History of Present Illness Filemon presents for psychiatric admission for worsening depression and SI. He states the start of thinking about suicide was a major warning sign for him as "my mind went back down that rabbit hole" and that he knew he would not be able to remain safe. He describes extreme loneliness as he has a lack of intimate connections though deeply wishes for this. Feels as though he will develop "insantity" due to his social isolation. Has one close female friend but only sees her once every two weeks and feels this is not frequent enough to prevent the feeling of total isolation. 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 Describes that "my anxiety and mental state go in waves". He has not been sleeping well. Reports seeing "constant images" when he closes his eyes of "abstract and flashing things" and that "I have a very analytical mind and I'm not sure if they mean something". Also describes possible ideas influenced by watching TV. Feels that he often waits too long to ask for support and that "I'm close to losing my sense of reality". Also describes being easily disturbed by loud noises as "they disrupt my agnieszka state". States he would never want to engage others in non-consensual intimate acts but has been having more intrusive thoughts about this due to "survivalist need" for contact "not even intimate just important for someone to be able to feel another's heart beat". He is not currently prescribed any psychiatric medications. Psychiatric ROS notable for no current nor history of symptoms of elvira. Possible history of PTSD. Physical Exam Psychiatric Orientation: alert and oriented x 3 Apperance: appropriately dressed, appropriately groomed and + disheveled Eye Contact: good eye contact and + fair eye contact Motor Behavior: no abnormal motor movements Speech: normal rate/rhythm/volume of speech Affect: + depressed affect, + anxious affect, + blunted affect and + constricted affect Mood: + depressed mood and + anxious mood Thought Process: goal directed thought process, + circumstantial thought process and + looseness of associations Thought Content: reality based without delusions, + neologisms, + ideas of reference and + loneliness Suicidal Thoughts: denies suicidal thoughts, denies suicidal plan and denies suicidal intent Homicidal Thoughts: denies homicidal thoughts and denies homicidal plan Hallucinations: no auditory hallucinations and no visual hallucinations (none except flashing light which he states is baseline and due to ASD) Cognition: recent memory grossly intact, remote memory grossly intact, attention grossly intact and language grossly intact Estimated Intelligence: consistent with education level Insight: + limited insight and + fair insight Judgment: + limited judgement and + fair judgement Vital Signs (Past 24 Hours) Last Vital Signs Temp 37.2 C 07/13/22 06:50 Pulse 65 07/13/22 06:51 Resp 18 07/13/22 06:50 BP 133/78 07/13/22 06:51 Pulse Ox 99 07/10/22 06:35 O2 Del Method 07/10/22 06:35 A physical exam was performed in the ED by the ED physician for the purposes of medical clearance. I accept that physical as correct and adequate for the purposes of the inpatient physical exam. Principal Diagnosis Cannabinoid-induced Psychosis Psychiatric Data See daily stay summary. In short, safety was maintained and the patient was cooperative with care. Medication changes included addition of sertraline and PRN hydroxyzine and they tolerated this well. A discharge planning session was held and safety plan was completed prior to discharge. Day of Discharge Assessment Today the patient voices readiness for discharge. They note improvement in mood and deny thoughts to harm self or others. Thoughts remain organized and they are improved from admission. There is no evidence of psychosis. They agree to take mediations as prescribed and keep follow-up appointments. They are stable for d ischarge to outpatient level of care. Advance Directives Advance Directives Information Provided: Yes Advance Directives: No Mental Health Advance Directive: No Advance Directives on File: No Living Will: No Power of Dish Up Person: No Advance Directives Reason:: Declines as Mental Health Visit. 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) Stable Relationships: Yes Supportive Family: Yes Tobacco Cessation at Discharge Practical counseling provided including: providing basic information about quitting Total Time Total Time Spent: Greater Than 30 Minutes Discharge Data Lab Results 02/08/23 02/08/23 02/08/23 06:54 06:54 06:54 WBC RBC Hgb Hct MCV MCH MCHC RDW Std Deviation RDW Coeff of Genevieve Plt Count MPV Immature Gran % (Auto) Neut % (Auto) Lymph % (Auto) [place]utherford % (Auto) Eos % (Auto) Baso % (Auto) Neut # (Auto) Lymph # (Auto) [place]utherford # (Auto) Eos # (Auto) Baso # (Auto) Immature Gran # (Auto) Sodium Potassium Chloride Carbon Dioxide Anion Gap BUN Creatinine Est Cr Clr Drug Dosing Est GFR ( Amer) Est GFR (Non-Af Amer) BUN/Creatinine Ratio Glucose Calcium Total Bilirubin AST ALT Alkaline Phosphatase Total Protein Albumin Globulin Albumin/Globulin Ratio TSH Urine Color Yellow Urine Appearance Clear Urine pH 6.5 Ur Specific [place] 1.016 Urine Protein Negative Urine Glucose (UA) Negative Urine Ketones 3+ H Urine Blood Negative Urine Nitrite Negative Urine Bilirubin Negative Urine Urobilinogen Negative Ur Leukocyte Esterase Negative Salicylates Urine Opiates Screen Neg Ur Methadone, Qual Neg Acetaminophen Urine Barbiturates Neg Ur Phencyclidine (PCP) Neg U Amphetamin/Meth Scrn Neg MDMA (Ecstasy) Screen Neg U Benzodiazepines Scrn Neg Ur Cocaine Metabolite Neg U Marijuana (THC) Screen Pos H U Marijuana THC Carboxy 91 H Drug Screen Comment SEE NOTE Ethyl Alcohol mg/dL SARS-CoV-2, RNA, NAAT 07/10/22 07/10/22 07/10/22 07:16 07:16 07:16 WBC 9.22 RBC 4.70 Hgb 14.6 Hct 40.8 L MCV 86.8 MCH 31.1 MCHC 35.8 RDW Std Deviation 39.1 RDW Coeff of Genevieve 12.2 Plt Count 226 MPV 9.0 L Immature Gran % (Auto) 0.3 Neut % (Auto) 74.3 Lymph % (Auto) 17.8 Rutherford % (Auto) 6.3 Eos % (Auto) 0.8 Baso % (Auto) 0.5 Neut # (Auto) 6.85 H Lymph # (Auto) 1.64 Rutherford # (Auto) 0.58 Eos # (Auto) 0.07 Baso # (Auto) 0.05 Immature Gran # (Auto) 0.03 Sodium 139 Potassium 3.4 L Chloride 103 Carbon Dioxide 30 Anion Gap 6 BUN 13 Creatinine 0.81 Est Cr Clr Drug Dosing 121.4 Est GFR ( Amer) 126.2 Est GFR (Non-Af Amer) 108.9 BUN/Creatinine Ratio 16.0 Glucose 128 H Calcium 9.7 Total Bilirubin 0.8 AST 14 ALT 19 Alkaline Phosphatase 54 Total Protein 7.4 Albumin 4.4 Globulin 3.0 Albumin/Globulin Ratio 1.5 TSH 1.066 Urine Color Urine Appearance Urine pH Ur Specific [place] Urine Protein Urine Glucose (UA) Urine Ketones Urine Blood Urine Nitrite Urine Bilirubin Urine Urobilinogen Ur Leukocyte Esterase Salicylates Urine Opiates Screen Ur Methadone, Qual Acetaminophen Urine Barbiturates Ur Phencyclidine (PCP) U Amphetamin/Meth Scrn MDMA (Ecstasy) Screen U Benzodiazepines Scrn Ur Cocaine Metabolite U Marijuana (THC) Screen U Marijuana THC Carboxy Drug Screen Comment Ethyl Alcohol mg/dL SARS-CoV-2, RNA, NAAT 07/10/22 07/10/22 07/10/22 07:16 07:16 07:16 WBC RBC Hgb Hct MCV MCH MCHC RDW Std Deviation RDW Coeff of Genevieve Plt Count MPV Immature Gran % (Auto) Neut % (Auto) Lymph % (Auto) [place]uther[place] % (Auto) Eos % (Auto) Baso % (Auto) Neut # (Auto) Lymph # (Auto) [place] # (Auto) Eos # (Auto) Baso # (Auto) Immature Gran # (Auto) Sodium Potassium Chloride Carbon Dioxide Anion Gap BUN Creatinine Est Cr Clr Drug Dosing Est GFR ( Amer) Est GFR (Non-Af Amer) BUN/Creatinine Ratio Glucose Calcium Total Bilirubin AST ALT Alkaline Phosphatase Total Protein Albumin Globulin Albumin/Globulin Ratio TSH Urine Color Urine Appearance Urine pH Ur Specific [place] Urine Protein Urine Glucose (UA) Urine Ketones Urine Blood Urine Nitrite Urine Bilirubin Urine Urobilinogen Ur Leukocyte Esterase Salicylates < 3.0 L Urine Opiates Screen Ur Methadone, Qual Acetaminophen < 3 L Urine Barbiturates Ur Phencyclidine (PCP) U Amphetamin/Meth Scrn MDMA (Ecstasy) Screen U Benzodiazepines Scrn Ur Cocaine Metabolite U Marijuana (THC) Screen U Marijuana THC Carboxy Drug Screen Comment Ethyl Alcohol mg/dL < 10.0 SARS-CoV-2, RNA, NAAT NEGATIVE Hospital Course (1) Major depressive disorder with current active episode: (2) Depression with suicidal ideation: (3) Autism spectrum disorder: Mental Health & Subst Abuse Tx Therapist Name of Therapist: None Scale Attendant Name of Scale Attendant: None Post Discharge Appointments Primary Care Physician Name Of Family Doctor/PCP: [facility] - Eligibility Appoin tment Primary Care Date of Future Appointment with PCP: 07/16/22 Time of Appointment with PCP: 10 AM Provider Appointment Comment: [id number], [address], [place], [place] Primary Care Release of Information: Obtained, Reviewed and Signed Other #1: Name of Aftercare Appointment: [facility] Time of Aftercare Appointment: Please bring photo ID, proof of address, most recent W-2 or taxes, Aftercare Appointment Comment: proof of income, and list of medications to eligibility appointment. Contact Information Discharge Discharge [address]: [address] [place] [address], [place] [address] Discharge Plan Discharge Items Patient Disposition: Home - Self-Care Reason For Visit: UNSPECIFIED MOOD DISORDER Discharge Diagnosis: Cannabinoid-induced Psychosis Cannabinoid-induced Panic Condition on Discharge: Good Activity: Resume your previous activity Driving/Machine Use: Resume 1 day after discharge Non-emergency contact: Primary Care Provider and Psychiatrist Call non-emergency contact if: you have any medication questions and your symptoms worsen Follow-up/Referrals: PCP,NO [Primary Care Provider] - Diet: Regular Addtl Attending Provider Instructions: SPECIAL CARE INSTRUCTIONS: 1. Follow through with your scheduled aftercare appointments. If unable to keep an appointment, please call to reschedule. 2. Take your medication only as prescribed. Medication should not be changed or stopped without the approval of your doctor. In the event of worsening symptoms or concerns about side effects, contact your doctor immediately. 3. Utilize new healthy coping skills, anger management skills, and stress management skills learned during your hospitalization. Journal feelings and process them with a support person. Identify stressors or situations that may result in relapse, deterioration or inappropriate behaviors and develop a plan to deal with those issues. 4. If your coping skills are ineffective and you are in crisis, contact your outpatient providers for direction. If unable to reach your providers, please call the [facility] CRISIS LINE AT , go to the [facility] walk-in center at [address], [address], [place], or go to the closest Emergency Room. 5. Avoid alcohol and un-prescribed drugs. 6. You have been provided with the Mental Health Advance Directives Pamphlet for your review. 7. Your condition is stable for discharge to outpatient level of care, but recovery is an ongoing process. Ifthoughts to harm yourself or others return, follow the safety plan developed during your stay. Planning for a safe return home includes securing weapons. Our treatment team recommends weaponsbe removed from the home until your outpatient provider reassesses your progress. In rare cases where the items themselvescannot be removed, guns and ammunitionshould be secured separatelyand keys stored by a reliable personoutside of the home. If you were admitted on an involuntary commitment, the police or other legal authorities may be involved in this process. AFTERCARE APPOINTMENTS: * Please call your insurance company prior to your scheduled appointment to confirm your aftercare providers are covered. Take your insurance information to your appointments. WHO TO CALL AND WHEN: Medical Emergencies: For questions or emergencies related to your hospital stay, please contact the Inpatient Behavioral Health Unit at [phone]. A accounting consultant is on-call 23/12 for the Behavioral Health Unit for emergencies At any time you feel your situation is an emergency, you may also call 911 immediately. Pending Studies at Discharge: No Stand-Alone Forms: My [facility] scoo mobility, Smoking Cessation Medications and DC Order Prescriptions: New hydroxyzine HCl 25 mg Tablet 25 mg PO Q4H PRN (Reason: anxiety) 30 Days Qty: 120 0RF hydroxyzine HCl 25 mg Tablet 50 mg PO HSZ PRN (Reason: insomnia) 30 Days Qty: 30 0RF sertraline 50 mg Tablet 50 mg PO QAM 30 Days Qty: 30 0RF Discharge Orders: Discharge Order (Routine); Ordered 07/13/22 Ordered By: Roberto Carlos Heredia/Other Patient Handouts: Anxiety Disorders Tx, Anxiety Disorders Medicine Admission Data Admit Date/Time: 07/10/22 10:00 Attending Provider: Uma Choe Admit Provider: Uma Choe Primary Care Provider: PCP,NO Coding Level of Care Code 59512 D/C day mgmt > 30 min Diagnoses Major depressive disorder with current active episode F32.9 Depression with suicidal ideation F32.A; R45.851 Autism spectrum disorder F84.0 Time Spent (min) 38
== END 2022-07-13 11:00 | disposition home or self-care (01) | DRG 897 ==
LOC: ED 06:32 → 3S 10:00 → ED 11:01